=== PATIENT | female | born 1965 | race Caucasian/White ===

== ENCOUNTER 2019-05-07 13:23 | Emergency (ER) | payer OTHER ==
[~2019-05-07] VITALS: Ht 162.6 cm; Wt 72.1 kg
[2019-05-07] MEDS ORDERED: PRINIVIL5 MG PO (13:40)
[2019-05-07] MEDS ORDERED: ATORVASTATIN CA20 MG PO (13:40)
[2019-05-07] MEDS ORDERED: EFFEXOR XR150 MG PO (13:40)
[2019-05-07] MEDS ORDERED: CLONAZEPAM 0.50.5 M1 PO (13:41)
[2019-05-07 15:06] VITALS: BP 124/78
[2019-05-07] MEDS ORDERED: NORCO 10-325 T1 EACH PO (16:52)
== END 2019-05-07 17:10 | disposition home or self-care (01) ==
LOC: ER 13:23
DX: S02.2XXA Fracture of nasal bones, initial encounter for closed fracture (principal); S09.90XA Unspecified injury of head, initial encounter; M54.2 Cervicalgia; M54.9 Dorsalgia, unspecified; E07.9 Disorder of thyroid, unspecified; I10 Essential (primary) hypertension; Z88.0 Allergy status to penicillin; Y04.0XXA Assault by unarmed brawl or fight, initial encounter; Y93.89 Activity, other specified; Y92.89 Other specified places as the place of occurrence of the external cause; Y99.8 Other external cause status